=== PATIENT | female | born 1975 | race American Indian/Alaskan Native ===

== ENCOUNTER 2017-01-10 12:07 | Outpatient (CLI) | payer MEDICAID | END 2017-01-10 15:10 | disposition home or self-care (01) | LOC: TRG 12:07 → LAB 12:07 → TRG 14:07 | PROVIDERS: ATTEND Obstetrics & Gynecology | DX: O09.893 Supervision of other high risk pregnancies, third trimester (principal); O36.0130 Maternal care for anti-D [Rh] antibodies, third trimester, not applicable or unspecified; Z3A.28 28 weeks gestation of pregnancy | CPT/HCPCS: 86850; 86900; 86901; 96372; J2790 ==

== ENCOUNTER 2017-03-24 16:13 | Outpatient (CLI) | payer MEDICAID ==
[2017-03-24 19:12] VITALS: BP 136/63
--- NOTE | 2017-03-25 00:27 | Ultrasound Report ---
FINAL REPORT EXAM: US OB LIMITED HISTORY: SAM TECHNIQUE: A limited OB sonogram was obtained for evaluation of the amniotic fluid index. FINDINGS: The total SAM based on measurements of 4 quadrants is 6.2 cm which is decreased. The fetus is in cephalic presentation. The heart is 139 BPM. A survey of organs was not performed. IMPRESSION: Oligohydramnios. SAM is 6.2 cm which is below normal. Cephalic presentation. heart rate is 139 BPM
--- NOTE | 2017-03-25 00:30 | Ultrasound Report ---
FINAL REPORT EXAM: US OB BPP WO NON-STRESS HISTORY: well-being TECHNIQUE: A limited OB sonogram was obtained for evaluation of the biophysical profile. FINDINGS: For breathing movements, a total score of 2 out of 2 was obtained. For movements, a total score of 2 out of 2 was obtained. For posture in tone, a total score of 2 out of 2 was obtained. For qualitative amniotic fluid volume, a total score of 2 out of 2 was obtained. The heart rate is 139 BPM. IMPRESSION: Total biophysical profile score of 8 out of 8.
== END 2017-03-24 20:45 | disposition home or self-care (01) ==
LOC: TRG 16:13
PROVIDERS: ATTEND Obstetrics & Gynecology
DX: O09.523 Supervision of elderly multigravida, third trimester (principal); O41.03X0 Oligohydramnios, third trimester, not applicable or unspecified; O48.0 Post-term pregnancy; Z3A.40 40 weeks gestation of pregnancy
CPT/HCPCS: 59025; 76815; 76819